=== PATIENT | male | born 1950 | race Caucasian/White ===

== ENCOUNTER 2020-08-22 17:28 | Observation (INO) | payer OTHER ==
[~2020-08-22] VITALS: Ht 175.3 cm; Wt 79.4 kg
[~2020-08-22 17:28] MED LIST: LISI5 PO; TRIM100 PO
[2020-08-22 18:21] LABS: Hematocrit 42.9 % (37.0-53.0); Hemoglobin 14.2 g/dL (13.5-17.5); Mean Corpuscular HGB 32.4 pg (26.0-34.0); Mean Corpuscular HGB Conc 33.1 g/dL (31.5-36.5); Mean Corpuscular Volume 98 fL (80-100); Mean Platelet Volume 10.3 fL (9.1-12.4); Platelet Count 177 K/mm3 (150-400); RDW Coefficient Variation 12.9 % (11.7-14.2); RDW Standard Deviation 46.6 fL (35.1-46.3); Red Blood Cell Count 4.38 M/mm3 (4.30-5.90)
[2020-08-22] MEDS ORDERED: ATOR10 PO (18:33)
[2020-08-22 18:44] LABS: Alanine Aminotransfer (ALT/SGP 32 U/L (12-78); Albumin, Blood 3.9 g/dL (3.4-5.0); Alk Phos 72 U/L (50-136); Anion Gap 6 mmol/L (6-16); Aspartate Aminotrans (AST/SGOT 29 U/L (12-37); Bilirubin, Total 0.3 mg/dL (0.1-1.0); Blood Urea Nitrogen 22 mg/dL (8-24); Bun/Creatinine Ratio 18.3 (12.0-20.0); CO2, Blood 24 mmol/L (21-32); Calcium, Blood 9.4 mg/dL (8.5-10.1); Chloride, Blood 108 mmol/L (98-108); Glomerular Filtration Rate >60 (60-); Glucose, Blood 195 mg/dL (70-99); Potassium, Blood 4.4 mmol/L (3.5-5.5); Sodium, Blood 138 mmol/L (136-145); Total Protein, Blood 7.9 g/dL (6.4-8.2)
[2020-08-22 18:46] LABS: BASOPHILS PERCENT MAN 1 % (0-2); EOSINOPHILS PERCENT MAN 0 % (0-6); LYMPHOCYTES PERCENT MAN 2 % (21-46); MONOCYTES PERCENT MAN 5 % (4-13); NEUTROPHILS ABSOLUTE MAN 9.29 K/mm3 (1.96-9.15); SEG NEUTROPHILS PERCENT MAN 92 % (41-73); TOTAL CELLS COUNTED 100
--- NOTE | 2020-08-23 03:39 | NUR ---
REPORT FROM ED REPORT RECIEVED FROM JEAN AT ER. PT TO TRANSFER TO ROOM 219.
--- NOTE | 2020-08-23 06:56 | NUR ---
PT ARRIVED FROM ED AT 0351 VIA STRETCHER. PT AOX4. TRANSFERED TO BED, REPORTS PAIN. TORADOL ADMINISTERED. PT PAIN IMPROVED. LUNGS ARE CLEAR BUT DIMINISHED AND HAD SHALLOW BREATHS. VSS. PT DENIES NUMBNESS AND TINGLING SENSATION. PT ALSO REPORTS CHEST PAIN AND SOB. HE IS ON ROOM AIR. SATURATING GREATER THAN 90%. IV ON RIGHT AC PRESENT. FLUIDS INFUSING WITH LR. PT STS HE SELF-CATH AT HOME. HE REPORTS FEELING PRESSURE ON HIS BLADDER. HE INSIST TO DO SELF-CATH. ASSIST PT IN BED, ON THE SIDE OF BED STANDING BUT HAD DIFFICULTY. HE FINALLY VOID IN THE BATHROOM WITH 500ML. TOLERATING WALKING WITH 1 MINIMAL ASSIST. CALL LIGHT WITHIN REACH.
--- NOTE | 2020-08-23 07:02 | NUR ---
SUMMARY NO ACUTE CHANGES AT THIS TIME. VSS. PT COMFORTABLE SLEEPING. CALL LIGHT WITHIN REACH. WILL PROVIDE REPORT WITH A.M NURSE.
--- NOTE | 2020-08-23 14:10 | NUR ---
PATIENT HAS BEEN INSTRUCTED HOW TO USE THE INSCENTIVE SPIROMETER. PATIENT REPORTS USING IT 5 TIMES IN THE LAST HOUR. PATIENT HAS BEEN ENCOURGAED TO USE THE INSCENTIVE SPIROMETER. THE POLITOENT'S IS AT THE BEDSIDE AT THIS TIME. THE PATIENT REPORTS A DECREASE IN PAOIN AFTER THE ADMINISTRATION OF PAIN MEDICATIONS. THE PATIENT SAT UP IN THE CHAIR FOR A COUPLE HOURS THIS MONRING. HE IS IN BED RESTING AT THIS TIME.
--- NOTE | 2020-08-23 16:08 | NUR ---
PATIENT IS ALERT AND ORIENTED AND COOPERATIVE WITH CARE. PATIENT IS ENCOURAGED TO USE THE INSCENTIVE SPIROMETER. DR. POWERS SAW THE PATIENT THIS AFTERNOON. PATIENT TRANSFERS TO THE BATHROOM WITH SBA. HE COMPLAINS OF LEFT RIB, SHOULDER AND BACK PAIN, MANAGED WELL PER EMAR. THE PATIENTS WAS AT THE BEDSIDE THIS AFTERNOON. PATIENT HAS A GOOD APPETITE. WILL CONTINUE TO MONITOR
--- NOTE | 2020-08-24 03:30 | NUR ---
SHIFT SUMMARY: LEFT RIB FX PATIENT IS ALERT AND ORIENTED X4 WHILE AWAKE. HE HAS BEEN ASLEEP BUT AROUSABLE MAJORITY OF THE SHIFT. VS ARE WNL AND IS ON RA. PAIN IS MANAGED WITH NORCO AND TORADOL. PATIENT HAS BEEN ABLE TO VOID AND IS TOLERATING PO INTAKE. PATIENT IS A SBA WITH GAIT BELT TO THE BATHROOM. PATIENT REPORTS MOST PAIN WITH MOVEMENT OF LEFT SIDE. CALL LIGHT WITHIN REACH. THE PAITIENT IS CURRENTLY SITTING UP IN BED WITH EYES CLOSED AND EQUAL/EVEN RESP. HE CALLS APPROPRIATELY. IV FLUIDS RUNNING THROUGH IV. THE PLAN IS TO CONTINUE MANAGEMENT OF PAIN.
[2020-08-24] MEDS ORDERED: HYDR1TAB94 PO (12:21)
--- NOTE | 2020-08-24 14:58 | NUR ---
DISCHARGE PT AND HIS WERE PROVIDED WITH WRITTEN AND VERBAL DISCHARGE INSTRUCTIONS, THEY REPORTED UNDERSTANDING. EXTRA EDUCATION WAS PROVIDED REGARDING MEDICATIONS, AND PT AND HIS WERE ANXIOUS ABOUT NEW MEDICATIONS. PT AMBULATED OUT WITHOUT ADDITIONAL ASSISTANCE.
== END 2020-08-24 14:45 | disposition home or self-care (01) ==
LOC: ER 17:28 → ERHOLD 17:29 → SURS 08-23 03:50
PROVIDERS: Emergency Medicine; ADMIT Surgery
DX: S22.42XA Multiple fractures of ribs, left side, initial encounter for closed fracture (principal); S22.071A Stable burst fracture of T9-T10 vertebra, initial encounter for closed fracture; S32.011A Stable burst fracture of first lumbar vertebra, initial encounter for closed fracture; V86.55XA Driver of 3- or 4- wheeled all-terrain vehicle (ATV) injured in nontraffic accident, initial encounter; Y93.I9 Activity, other involving external motion
CPT/HCPCS: 70450; 71045; 71046; 71260; 73030; 74177; 80053; 85025; 90471; 90714; 96374-59; 96375; 96375-59; 96376; 96376-59; 97110; 97162; 99285-25; A9270; G0378; J1170; J1885; J3010; J7120; Q9967

== ENCOUNTER 2023-02-15 09:46 | Day surgery (SDC) | payer OTHER ==
[~2023-02-15] VITALS: Ht 172.7 cm; Wt 75.6 kg
[2023-02-15] VITALS (9 sets, daily range): BP systolic 151–169; BP diastolic 92–108
[~2023-02-15 09:46] MED LIST changes: +ATOR10 PO; +HYDR1TAB94 PO
--- NOTE | 2023-02-15 12:10 | NUR ---
Ambulatory in Day Surgery History, Chart, Medications and Allergies reviewed before start of procedure.Patient confirms NPO status and agrees with scheduled surgery. Patient reports completing Chlorhexadine shower X2 prior to admission to hospital.Patient States Post-Procedure ride home has been arranged.
--- NOTE | 2023-02-15 15:05 | NUR ---
DISCHATGE NOTE PT A&OX4, BREATHING RA, TOLERATING PO FLUIDS AND FOOD. FAMILY AT BEDSIDE. PT BLADDER SCANNED, RESULT 299, PT SELF CATHS AND WAS INSTRUCTED TO CATH AT HOME IF NEEDED. Patient up to Ambulate independently. Gait steady. Discharge instructions reviewed with patient. Patient verbalizes understanding. Copy given to patient to take home. Dressing to procedure site clean, dry, intact with no visible drainage, swelling, erythema or bruising noted. Discharged via wheelchair to private car for ride home.
== END 2023-02-15 15:00 | disposition home or self-care (01) ==
LOC: ORSCMMR 09:46 → ORD 11:30 → ORSCMMR 11:30
PROVIDERS: Surgery
PROC: 0YU60JZ Supplement Left Inguinal Region with Synthetic Substitute, Open Approach (ICD-10-PCS; principal; 2023-02-15 11:30)
DX: K40.30 Unilateral inguinal hernia, with obstruction, without gangrene, not specified as recurrent (principal); E78.5 Hyperlipidemia, unspecified; R73.03 Prediabetes; Z79.899 Other long term (current) drug therapy
CPT/HCPCS: A9270; C1781; J0690; J2704; J3010; J7120